=== PATIENT | male | born 1970 | race Hispanic/Latino ===

== ENCOUNTER 2019-05-13 20:54 | Emergency (ER) | payer SELFPAY ==
[2019-05-13] MEDS ORDERED: SODIUM CHLORIDE 0.9% 1000 ML 1,000 ML IV ONE ×2 (21:33→22:00)
[2019-05-13] MEDS ORDERED: MORPHINE 2 MG/1 ML INJ IV ONE (21:33)
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
[2019-05-13] MEDS ORDERED: HYDROmorphone 1 MG/1 ML INJ ONE (22:35)
[2019-05-13] MEDS ORDERED: HYDROmorphone 1 MG/1 ML INJ IV ONE (22:40)
[2019-05-13 23:13] LABS: Hematocrit 35.9 % (35.5-45.6); Hemoglobin 12.6 gm/dl (11.8-15.2); Mean Corpuscular HGB Conc 35 % (32-34); Mean Corpuscular Volume 100 fl (84-94); Platelet Count 204 K/mm3 (140-440); Red Cell Distribution Width 12.5 % (13.2-15.2)
[2019-05-13 23:20] LABS: INR 1.15 (0.87-1.13)
[2019-05-13 23:21] LABS: Partial Thromboplastin Time 31.5 Sec. (24.2-36.6)
[2019-05-13 23:33] LABS: BUN/Creatinine Ratio 12; Blood Urea Nitrogen 11 mg/dL (9-20); Calcium 7.4 mg/dL (8.4-10.2); Hemolysis Index 4
[2019-05-14 00:22] VITALS: BP 120/79
[2019-05-14 05:21] LABS: Basophils % (Manual) 0 % (0.0-1.8); Eosinophils % (Manual) 0 % (0.0-4.3); Platelet Estimate Consistent w Auto; RBC Morphology Normal; Total Cells Counted 100
== END 2019-05-14 00:31 | disposition other institution (70) ==
LOC: ED 20:54
DX: T18.5XXA Foreign body in anus and rectum, initial encounter (principal); Z88.5 Allergy status to narcotic agent; X58.XXXA Exposure to other specified factors, initial encounter; Y93.89 Activity, other specified; Y92.89 Other specified places as the place of occurrence of the external cause; Y99.8 Other external cause status
CPT/HCPCS: 36415; 80048; 85007; 85025; 85610; 85730; 86850; 86900; 86901; 96374; 96375; 99291; J1170; J2270; J7030